=== PATIENT | male | born 1965 | race Caucasian/White ===

== ENCOUNTER 2017-03-08 05:50 | Emergency (ER) | payer OTHER ==
[2017-03-08] MEDS ORDERED: ONDANSETRON HCL INJ/PF 4 MG/2 ML SDV IV ONE (06:18)
--- NOTE | 2017-03-08 06:20 | ER Document Report ---
ED GI/ - General Mode of Arrival: Ambulatory Information source: Patient TRAVEL OUTSIDE OF THE [place] IN LAST 30 DAYS: No - HPI Patient complains to provider of: Other - see narrative Onset: Just prior to arrival - 0300 Timing/Duration: Sudden Quality of pain: Cramping Location: Other - periumbilical Associated symptoms: Vomiting <CHRISTIANO TREVIÑO - Last Filed: 03/08/17 06:13> <CHRISTOPHER RITTER - Last Filed: 03/08/17 11:34> - General Chief Complaint: Abdominal Pain Stated Complaint: ABDOMINAL PAIN Time Seen by Provider: 03/08/17 06:05 Notes: Patient is a 52-year-old male who presents to the emergency department today after waking up at 0300 with the sensation that his "stomach was tied in knots" . Patient states he had no relief with using a heating pad, taking Tums, or having a bowel movement prior to arrival. Patient states he has vomited twice but does not have nausea precipitating the vomiting. Patient denies a history of abdominal surgeries, blood in his vomit or bowel movement, fevers, chest pain , or history of new foods. (CHRISTIANO TREVIÑO) Past Medical History - General Information source: Patient - Social History Smoking Status: Never Smoker Cigarette use (# per day): No Frequency of alcohol use: None Drug Abuse: None Lives with: Family Family History: Reviewed & Not Pertinent Patient has suicidal ideation: No Patient has homicidal ideation: No - Medical History Medical History: Negative Surgical Hx: Negative <CHRISTIANO TREVIÑO - Last Filed: 03/08/17 06:13> Review of Systems - Review of Systems Constitutional: denies: Fever EENT: No symptoms reported Cardiovascular: denies: Chest pain Respiratory: No symptoms reported Gastrointestinal: See HPI, Abdominal pain, Vomiting. denies: Diarrhea, Nausea Genitourinary: No symptoms reported Male Genitourinary: No symptoms reported Musculoskeletal: No symptoms reported Skin: No symptoms reported Hematologic/Lymphatic: No symptoms reported Neurological/Psychological: No symptoms reported -: Yes All other systems reviewed and negative <CHRISTIANO TREVIÑO - Last Filed: 03/08/17 06:13> Physical Exam <CHRISTIANO TREVIÑO - Last Filed: 03/08/17 06:13> - Abdominal Distension: No: Distended Tenderness: No: Guarding, Rebound <CHRISTOPHER RITTER - Last Filed: 03/08/17 11:34> - Vital signs Vitals: Temp Pulse Resp BP Pulse Ox 98.5 F 81 18 182/94 H 99 03/08/17 05:55 03/08/17 05:55 03/08/17 05:55 03/08/17 05:55 03/08/17 05:55 - Notes Notes: PHYSICAL EXAM GENERAL: Alert, interacts well. No acute distress. HEAD: Normocephalic, atraumatic. EYES: Pupils equal, round, and reactive to light. Extraocular movements intact. ENT: Oral mucosa moist, tongue midline. NECK: Full range of motion. Supple. Trachea midline. LUNGS: Clear to auscultation bilaterally, no wheezes, rales, or rhonchi. No respiratory distress. HEART: Regular rate and rhythm. No murmurs, gallops, or rubs. ABDOMEN: Soft, mild abdominal periumbilical tenderness with palpation. Non- distended. Bowel sounds present in all 4 quadrants. EXTREMITIES: Moves all 4 extremities spontaneously. No edema, radial and dorsalis pedis pulses 2/4 bilaterally. No cyanosis. NEUROLOGICAL: Alert and oriented x3. Normal speech. PSYCH: Normal affect, normal mood. SKIN: Warm, dry, normal turgor. No rashes or lesions noted. (CHRISTIANO TREVIÑO) Course <CHRISTIANO TREVIÑO - Last Filed: 03/08/17 06:13> - Laboratory Result Diagrams: 03/08/17 06:27 03/08/17 06:27 <CHRISTOPHER RITTER - Last Filed: 03/08/17 11:34> - Re-evaluation Re-evalutation: 03/08/17 08:45 Patient has mild leukocytosis of 10.8,, no anemia, CMP does show hyperglycemia otherwise unremarkable, lipase normal, urinalysis shows glucose and a large amount of urine. Acute abdominal series does not show any signs of obstruction. Despite the patient's protest that he was no longer nauseated he did vomit shortly after he left the room. Patient was then given Zofran and feels much better is able to tolerate oral intake without difficulty. Patient was offered Toradol but his pain had resolved on its own so he refused. Patient has a history of kidney stones in the past, still has Flomax and pain medication at home, does not want a CT scan to confirm the presence of a stone. Patient will be discharged to home where he still has pain medication and Flomax. Patient will return for uncontrollable vomiting, fevers, uncontrollable pain or any new or concerning symptoms. (CHRISTOPHER RITTER) - Vital Signs Vital signs: Temp Pulse Resp BP Pulse Ox 98.6 F 102 H 18 162/96 H 95 03/08/17 09:13 03/08/17 09:13 03/08/17 09:13 03/08/17 09:13 03/08/17 09:13 - Laboratory Laboratory results interpreted by me: 03/08/17 03/08/17 03/08/17 06:27 06:27 06:53 WBC 10.8 H RDW 15.0 H Glucose 377 H Calcium 10.3 H Urine Protein 30 H Urine Glucose (UA) >=500 H Urine Blood LARGE H Urine Ascorbic Acid 20 H Discharge <CHRISTIANO TREVIÑO - Last Filed: 03/08/17 06:13> <CHRISTOPHER RITTER - Last Filed: 03/08/17 11:34> - Discharge Clinical Impression: Ureteral colic Hematuria Qualifiers: Hematuria type: unspecified type Qualified Code(s): R31.9 - Hematuria, unspecified Hypertension Qualifiers: Hypertension type: essential hypertension Qualified Code(s): I10 - Essential ( primary) hypertension Condition: Stable Disposition: HOME, SELF-CARE Additional Instructions: Kidney Stone You are passing or have passed a kidney stone. These stones are usually due to increased calcium or uric acid concentrations in your urine. Stones within the kidney itself are not painful. The pain occurs as the stone leaves the kidney to pass down the long tube, called the ureter, leading to the bladder. If the stone is small, it will usually pass by itself. Most patients can pass the stone at home. You will usually receive medications for pain, nausea or vomiting, and sometimes a medication to assist in passing the kidney stone. However, if the pain is very severe or if vomiting prevents you from taking oral pain medications, you may need to return for further treatment. Drink three or four quarts of fluids per day. You will be given pain medication (if needed) and urine strainers. Strain all your urine to see if the stone passes. If your doctor has asked you to bring the stone in for analysis, return with the stone once it has passed. Return if pain or vomiting become severe, if you develop a high fever, if you are unable to pass your urine, or if other unusual symptoms occur. Prescriptions: Ondansetron [Zofran Odt 4 mg Tablet] 1 - 2 tab PO Q4H PRN #15 tab.rapdis PRN Reason: For Nausea/Vomiting Forms: Elevated Blood Pressure Scribe Attestation: 03/08/17 11:34 I personally performed the services described in the documentation, reviewed and edited the documentation which was dictated to the scribe in my presence, and it accurately records my words and actions. (CHRISTOPHER RITTER) Scribe Documentation - Scribe Written by Melissa:: Melissa Caraballo, 03/08/2017 0621 acting as scribe for :: Dl <CHRISTIANO TREVIÑO - Last Filed: 03/08/17 06:13>
[2017-03-08 06:40] LABS: ABSOLUTE BASOPHILS # (AUTO) 0.1 10^3/uL (0.0-0.2); ABSOLUTE EOSINOPHILS # (AUTO) 0.2 10^3/uL (0.0-0.6); ABSOLUTE LYMPHOCYTES (AUTO) 2.4 10^3/uL (0.5-4.7); ABSOLUTE MONOCYTES (AUTO) 0.8 10^3/uL (0.1-1.4); ABSOLUTE NEUT (AUTO) 7.3 10^3/uL (1.7-8.2); BASOPHILS % (AUTO) 0.9 % (0-2); EOSINOPHILS % (AUTO) 1.8 % (0-6); HEMATOCRIT 39.7 % (37.9-51.0); HEMOGLOBIN 14.3 g/dL (13.5-17.0); HGB HCT DIFFERENCE 3.2; LYMPHOCYTES % (AUTO) 21.8 % (13-45); MEAN CORPUSCULAR HEMOGLOBIN 28.9 pg (27.0-33.4); MEAN CORPUSCULAR HGB CONC 35.9 g/dL (32.0-36.0); MEAN CORPUSCULAR VOLUME 81 fl (80-97); MONOCYTES % (AUTO) 7.9 % (3-13); RED BLOOD COUNT 4.94 10^6/uL (4.35-5.55); SEGMENTED NEUTROPHILS % (AUTO) 67.6 % (42-78); WHITE BLOOD COUNT 10.8 10^3/uL (4.0-10.5)
[2017-03-08 06:51] LABS: ALANINE AMINOTRANSFERASE 66 U/L (21-72); ALBUMIN 4.4 g/dL (3.5-5.0); ALKALINE PHOSPHATASE 81 U/L (38-126); ANION GAP 14 (5-19); ASPARTATE AMINO TRANSFERASE 33 U/L (17-59); BILIRUBIN,DIRECT 0.4 mg/dL (0.0-0.4); BILIRUBIN,TOTAL 0.8 mg/dL (0.2-1.3); BLOOD UREA NITROGEN 16 mg/dL (7-20); CALCIUM 10.3 mg/dL (8.4-10.2); CARBON DIOXIDE 25 mmol/L (22-30); CHLORIDE 103 mmol/L (98-107); CREATININE RESULT 0.96 mg/dL (0.52-1.25); GLUCOSE 377 mg/dL (75-110); POTASSIUM 4.5 mmol/L (3.6-5.0); SODIUM 142.4 mmol/L (137-145); TOTAL PROTEIN 7.1 g/dL (6.3-8.2)
[2017-03-08] MEDS ORDERED: KETOROLAC TROMETHAMINE INJ/PF 30 MG/1 ML SDV IV ONE (06:58)
--- NOTE | 2017-03-08 07:24 | RADIOLOGY REPORT (SQ) ---
EXAM DESCRIPTION: ACUTE ABDOMEN SERIES COMPLETED DATE/TIME: 03/08/2017 7:12 am REASON FOR STUDY: cramping abd pain, "tied in knots" COMPARISON: None. NUMBER OF VIEWS: Three views. TECHNIQUE: Frontal chest, supine abdomen and upright/decubitus abdomen radiographic images acquired. LIMITATIONS: None. FINDINGS: CHEST: Lungs clear of infiltrates. FREE AIR: None. No abnormal gas collections. BOWEL GAS PATTERN: Nonobstructive pattern. No dilated loops or air fluid levels. Paucity of bowel ga s. CALCIFICATIONS: No suspicious calcifications. HARDWARE: None in the abdomen. SOFT TISSUES: No gross mass or suggestion of organomegaly. BONES: Mild osteoarthritis of bilateral hips. OTHER: No other significant finding. IMPRESSION: NO RADIOGRAPHIC EVIDENCE FOR ACUTE ABDOMINAL DISEASE. TECHNICAL DOCUMENTATION: JOB ID: [id number] [employer]- All Rights Reserved
[2017-03-08 07:39] LABS: APPEARANCE,URINE CLEAR; BILIRUBIN,URINE NEGATIVE (NEGATIVE); GLUCOSE, URINE >=500 mg/dL (NEGATIVE); KETONES,URINE NEGATIVE (NEGATIVE); LEUKOCYTE ESTERASE,URINE NEGATIVE (NEGATIVE); NITRITE,URINE NEGATIVE (NEGATIVE); PROTEIN,URINE 30 mg/dL (NEGATIVE); URINE SPECIFIC GRAVITY 1.012; UROBILINOGEN,URINE NEGATIVE mg/dL (<2.0)
[2017-03-08 10:13] VITALS: BP 162/96
== END 2017-03-08 09:12 | disposition home or self-care (01) ==
LOC: ER 05:50
DX: N23 Unspecified renal colic (principal); R10.33 Periumbilical pain; R31.9 Hematuria, unspecified; R11.10 Vomiting, unspecified; I10 Essential (primary) hypertension
CPT/HCPCS: 99284; 96374; 36415; 83690; 85025; 80053; 81001; 74022; J2405

== ENCOUNTER 2018-05-19 06:18 | Emergency (ER) | payer OTHER ==
[2018-05-19] MEDS ORDERED: METOPROLOL TARTRATE PF/INJ 5 MG/5 ML SDV IV ONE (07:04)
[2018-05-19] MEDS ORDERED: KETOROLAC TROMETHAMINE INJ/PF 30 MG/1 ML SDV IV ONE (07:20)
--- NOTE | 2018-05-19 07:24 | ER Document Report ---
ED General - General Mode of Arrival: Ambulatory Information source: Patient TRAVEL OUTSIDE OF THE [place] IN LAST 30 DAYS: No <ZENAIDA SINGH - Last Filed: 05/19/18 07:24> <CHRISTIE HOLMAN - Last Filed: 05/19/18 10:39> - General Chief Complaint: Abdominal Pain Stated Complaint: ABDOMINAL PAIN Time Seen by Provider: 05/19/18 07:00 Notes: Patient is a 53 year old male presenting to the emergency department complaining of abdominal pain onset around 0300 this morning. Patient states he noticed the pain when he woke up this morning and states the pain is located around his umbilicus. Patient states he had somewhat similar pain approximately 1 year ago and was diagnosed with a kidney stone. Patient denies any diarrhea or constipation. (ZENAIDA SINGH) - Related Data Allergies/Adverse Reactions: No Known Drug Allergies Allergy (Verified 05/19/18 08:39) Past Medical History - General Information source: Patient - Social History Smoking Status: Never Smoker Frequency of alcohol use: Occasional Family History: Reviewed & Not Pertinent Patient has suicidal ideation: No Patient has homicidal ideation: No Past Surgical History: Reports: Hx Tonsillectomy <ZENAIDA SINGH - Last Filed: 05/19/18 07:24> Review of Systems - Review of Systems Constitutional: No symptoms reported EENT: No symptoms reported Cardiovascular: No symptoms reported Respiratory: No symptoms reported Gastrointestinal: See HPI, Abdominal pain Genitourinary: No symptoms reported Male Genitourinary: No symptoms reported Musculoskeletal: No symptoms reported Skin: No symptoms reported Hematologic/Lymphatic: No symptoms reported Neurological/Psychological: No symptoms reported -: Yes All other systems reviewed and negative <ZENAIDA SINGH - Last Filed: 05/19/18 07:24> Physical Exam <ZENAIDA SINGH - Last Filed: 05/19/18 07:24> <CHRISTIE HOLMAN - Last Filed: 05/19/18 10:39> - Vital signs Vitals: Temp Pulse Resp BP Pulse Ox 97.5 F 88 18 186/89 H 97 05/19/18 06:24 05/19/18 06:24 05/19/18 06:24 05/19/18 06:24 05/19/18 06:24 - Notes Notes: GENERAL: Alert, interacts well. No acute distress. HEAD: Normocephalic, atraumatic. EYES: Pupils equal, round, and reactive to light. Extraocular movements intact. ENT: Oral mucosa moist, tongue midline. NECK: Full range of motion. Supple. Trachea midline. LUNGS: Clear to auscultation bilaterally, no wheezes, rales, or rhonchi. No respiratory distress. HEART: Regular rate and rhythm. No murmurs, gallops, or rubs. ABDOMEN: Soft, obese. Tender to palpation around the umbilicus, more tender in the RLQ and LLQ, no guarding, rigidity or rebounding. Non-distended. Bowel sounds present in all 4 quadrants, resonant to percussion. EXTREMITIES: Moves all 4 extremities spontaneously. NEUROLOGICAL: Alert and oriented x3. Normal speech. PSYCH: Normal affect, normal mood. SKIN: Warm, dry, normal turgor. No rashes or lesions noted. (ZENAIDA SINGH) Course - Laboratory Result Diagrams: 05/19/18 06:50 05/19/18 06:50 <ZENAIDA SINGH - Last Filed: 05/19/18 07:24> - Laboratory Result Diagrams: 05/19/18 06:50 05/19/18 06:50 - Diagnostic Test Radiology reviewed: Reports reviewed - KUB is unremarkable. Noncontrasted CT scan of the abdomen pelvis shows a right proximal ureteral stone measuring 5.7 x 5.4 mm causing hydroureter and hydronephrosis with some perinephric stranding. <CHRISTIE HOLMAN - Last Filed: 05/19/18 10:39> - Re-evaluation Re-evalutation: 05/19/18 08:11 The patient's blood sugar is 464. When he was seen here just over a year ago it was 377. I asked him if he had ever been told he had diabetes, and he stated when he was seen for kidney stone perhaps 2 years ago he was told that his sugar was "a little high, but nothing to worry about". (CHRISTIE HOLMAN) - Vital Signs Vital signs: Temp Pulse Resp BP Pulse Ox 98.2 F 87 18 179/90 H 97 05/19/18 07:50 05/19/18 07:50 05/19/18 07:50 05/19/18 07:50 05/19/18 07:50 - Laboratory Laboratory results interpreted by me: 05/19/18 05/19/18 05/19/18 06:50 06:50 07:50 WBC 13.9 H Seg Neutrophils % 81.7 H Lymphocytes % 10.7 L Absolute Neutrophils 11.3 H Glucose 464 H* Urine Glucose (UA) >=500 H Urine Ketones TRACE H Urine Blood LARGE H Urine Ascorbic Acid 40 H Discharge <ZENAIDA SINGH - Last Filed: 05/19/18 07:24> <CHRISTIE HOLMAN - Last Filed: 05/19/18 10:39> - Discharge Clinical Impression: Calculus of proximal right ureter, Hydronephrosis of right kidney, High blood pressure associated with diabetes Diabetes Qualifiers: Diabetes mellitus type: type 2 Diabetes mellitus remote computer terminal operator insulin use: without remote computer terminal operator use Diabetes mellitus complication status: without complication Qualified Code(s): E11.9 - Type 2 diabetes mellitus without complications Condition: Stable Disposition: HOME, SELF-CARE Additional Instructions: Kidney Stone: You are passing or have passed a kidney stone. These stones are usually due to increased calcium or uric acid concentrations in your urine. Stones within the kidney itself are not painful. The pain occurs as the stone leaves the kidney to pass down the long tube, called the ureter, leading to the bladder. If the stone is small, it will usually pass by itself. Most patients can pass the stone at home. You will usually receive medications for pain, nausea or vomiting, and sometimes a medication to assist in passing the kidney stone. However, if the pain is very severe or if vomiting prevents you from taking oral pain medications, you may need to return for further treatment. Drink three or four quarts of fluids per day. You will be given pain medication (if needed) and urine strainers. Strain all your urine to see if the stone passes. If your doctor has asked you to bring the stone in for analysis, return with the stone once it has passed. Return if pain or vomiting become severe, if you develop a high fever, if you are unable to pass your urine, or if other unusual symptoms occur. Diabetes: You have an abnormally high blood sugar, suspicious for diabetes. Not all high blood sugar requires long-term treatment. High blood sugar can be due to medications, , or the stress of illness. (These cases are "borderline diabetes.") If the doctor feels your high blood sugar might get better with time, you may not require treatment now. You will be scheduled for further evaluation. It's very important that you follow through. Uncontrolled high blood sugar leads to early heart disease , strokes, nerve damage, eye damage, and kidney damage. All diabetics should follow a diet designed to control the blood sugar. Overweight diabetics should exercise regularly and lose weight. If this is not sufficient to control the blood sugar, pills or insulin shots are necessary. Younger people who develop diabetes almost always require insulin daily. Home testing of blood sugars or urine sugar is required. Diabetic teaching is available to help you figure insulin doses and monitor the blood sugar. Call the physician if there is faintness, excess sleepiness, or very rapid breathing. If hypoglycemia (LOW blood sugar) develops, symptoms are shakiness, weakness, sweating, and confusion. In this case, you should eat or drink something with sugar at once. High Blood Pressure, Requiring Treatment: Your blood pressure is high. This is called "hypertension." Your history and exam suggest that this is not a temporary problem. You need treatment of your blood pressure. If left untreated, high blood pressure greatly increases your risk of heart attack and stroke. Please don't ignore this problem. If you have blood pressure medicine but aren't using it regularly, start taking it again. Some simple things you can do to help are: Get some aerobic exercise for at least 20 minutes on a daily basis. (See your doctor before beginning any new exercise program.) Eat a low-fat diet. Lose excess weight. Avoid salty foods and avoid adding salt to any of the foods you eat. Avoid diet pills, decongestants, "energizing" herbs, and other medicines that elevate blood pressure. There are many different medicines that treat blood pressure. If your medication causes unpleasant side effects, call your doctor. There are others you can try. Treating hypertension is a life-long investment in your health. Your blood pressure was quite high today, when you were here last year it was also high. You will be placed on a blood pressure medication called Lisinopril which is recommended in diabetics. You will be placed on Metformin to help control your blood sugars. You will be given prescriptions for Flomax and Percocet to help with the kidney stone. Follow-up with [facility] urology to treat your kidney stone. Follow-up with Dr. Petersen at [facility]. RETURN TO THE EMERGENCY ROOM IF ANY NEW OR WORSENING SYMPTOMS. Prescriptions: Lisinopril [Prinivil] 20 mg PO DAILY #30 tablet Metformin HCl 1,000 mg PO BID #60 tablet Oxycodone HCl/Acetaminophen [Percocet 5-325 mg Tablet] 1 - 2 tab PO ASDIR PRN # 15 tablet PRN Reason: Tamsulosin HCl [Flomax 0.4 mg Cap.sr] 0.4 mg PO DAILY #20 cap.sr.24h Referrals: [facility] [Outside] - [facility] in 1 [facility] - Follow up in 3-5 days Scribe Attestation: 05/19/18 08:57 I personally performed the services described in the documentation, reviewed and edited the documentation which was dictated to the scribe in my presence, and it accurately records my words and actions. (CHRISTIE HOLMAN) Scribe Documentation - Scribe Written by Scrnayanae:: Melissa Lugo, 05/19/2018 07:26 acting as scribe for :: Yong <ZENAIDA SINGH - Last Filed: 05/19/18 07:24>
[2018-05-19 07:39] LABS: ABSOLUTE BASOPHILS # (AUTO) 0.1 10^3/uL (0.0-0.2); ABSOLUTE EOSINOPHILS # (AUTO) 0.1 10^3/uL (0.0-0.6); ABSOLUTE LYMPHOCYTES (AUTO) 1.5 10^3/uL (0.5-4.7); ABSOLUTE MONOCYTES (AUTO) 0.9 10^3/uL (0.1-1.4); ABSOLUTE NEUT (AUTO) 11.3 10^3/uL (1.7-8.2); BASOPHILS % (AUTO) 0.6 % (0-2); EOSINOPHILS % (AUTO) 0.5 % (0-6); HEMATOCRIT 42.2 % (37.9-51.0); LYMPHOCYTES % (AUTO) 10.7 % (13-45); MEAN CORPUSCULAR HEMOGLOBIN 28.5 pg (27.0-33.4); MEAN CORPUSCULAR HGB CONC 35.4 g/dL (32.0-36.0); MEAN CORPUSCULAR VOLUME 80 fl (80-97); MONOCYTES % (AUTO) 6.5 % (3-13); PLATELET COUNT 259 10^3/uL (150-450); RED BLOOD COUNT 5.25 10^6/uL (4.35-5.55); SEGMENTED NEUTROPHILS % (AUTO) 81.7 % (42-78); TOTAL CELLS COUNTED % (AUTO) 100 %; WHITE BLOOD COUNT 13.9 10^3/uL (4.0-10.5)
[2018-05-19 07:45] LABS: ALANINE AMINOTRANSFERASE 34 U/L (21-72); ALBUMIN 4.4 g/dL (3.5-5.0); ALKALINE PHOSPHATASE 99 U/L (38-126); ANION GAP 16 (5-19); ASPARTATE AMINO TRANSFERASE 24 U/L (17-59); BILIRUBIN,DIRECT 0.3 mg/dL (0.0-0.4); BILIRUBIN,TOTAL 0.9 mg/dL (0.2-1.3); BLOOD UREA NITROGEN 18 mg/dL (7-20); CALCIUM 9.6 mg/dL (8.4-10.2); CARBON DIOXIDE 26 mmol/L (22-30); CHLORIDE 100 mmol/L (98-107); POTASSIUM 4.6 mmol/L (3.6-5.0); SODIUM 142.2 mmol/L (137-145)
--- NOTE | 2018-05-19 07:52 | RADIOLOGY REPORT (SQ) ---
EXAM DESCRIPTION: XR ABDOMEN 1 VIEW (KUB) COMPLETED DATE/TME: 05/19/2018 07:21 CLINICAL HISTORY: 53 years Male, Mid and lower abdominal pain COMPARISON:03/08/2017 NUMBER OF VIEWS/TECHNIQUE: 1 FINDINGS: Intestinal gas pattern is within normal limits. No suspicious calcification. Grossly intact skeletal structures. IMPRESSION: No acute findings.
[2018-05-19 07:54] LABS: GLUCOSE 464 mg/dL (75-110)
[2018-05-19 08:58] LABS: APPEARANCE,URINE SLIGHTLY-CLOUDY; BILIRUBIN,URINE NEGATIVE (NEGATIVE); COLOR,URINE YELLOW; GLUCOSE, URINE >=500 mg/dL (NEGATIVE); KETONES,URINE TRACE mg/dL (NEGATIVE); LEUKOCYTE ESTERASE,URINE NEGATIVE (NEGATIVE); NITRITE,URINE NEGATIVE (NEGATIVE); PROTEIN,URINE NEGATIVE (NEGATIVE); URIC ACID CRYSTALS,URINE FEW /HPF; URINE SPECIFIC GRAVITY 1.022; UROBILINOGEN,URINE NEGATIVE mg/dL (<2.0)
--- NOTE | 2018-05-19 09:57 | RADIOLOGY REPORT (SQ) ---
EXAM DESCRIPTION: CT LTD RENAL STONE PROTOCOL ON COMPLETED DATE/TIME: 05/19/2018 9:41 am REASON FOR STUDY: Bilateral pelvic pain with hematuria COMPARISON: None. TECHNIQUE: CT scan of the abdomen and pelvis performed without intravenous or oral contrast. Images reviewed with lung, soft tissue, and bone windows. Reconstructed coronal and sagittal MPR images revi ewed. All images stored on PACS. All CT scanners at this facility use dose modulation, iterative reconstruction, and/or weight based d osing when appropriate to reduce radiation dose to as low as reasonably achievable (ALARA). [facility]: Dose Right [facility]: CareDose [facility]: Dose Right [facility]: Teradose 4D [facility]: Smart OpenLabel RADIATION DOSE: CT Rad equipment meets quality standard of care and radiation dose reduction techniq ues were employed. CTDIvol: 9.5 mGy. DLP: 571 mGy-cm.mGy. LIMITATIONS: None. FINDINGS: LOWER CHEST: No significant findings. No nodules or infiltrates. NON-CONTRASTED LIVER, SPLEEN, ADRENALS: Evaluation limited by lack of IV contrast. No identified sign ificant masses. PANCREAS: No masses. No peripancreatic inflammatory changes. GALLBLADDER: No identified stones by CT criteria. No inflammatory changes to suggest cholecystitis. RIGHT KIDNEY AND URETER: No suspicious masses. Assessment limited by lack of IV contrast. No right renal calculi are identified. An obstructing 5.7 x 5.4 mm in diameter calculus is identified in the proximal right ureter best seen on image number 58. There is hydronephrosis of right kidney and dil atation of the right ureter proximal to the obstructing calculus. Perinephric soft tissue stranding is identified. LEFT KIDNEY AND URETER: No suspicious masses. Assessment limited by lack of IV contrast. No signifi cant calcifications. No hydronephrosis or hydroureter. AORTA AND RETROPERITONEUM: No aneurysm. No retroperitoneal masses or adenopathy. BOWEL AND PERITONEAL CAVITY: No obvious masses or inflammatory changes. No free fluid. Multiple dive rticulae a are identified in the descending colon and sigmoid colon without CT evidence for diverticu litis APPENDIX: Normal. PELVIS, BLADDER, AND ABDOMINAL WALL:No abnormal masses. No free fluid. Bladder normal. BONES: No significant findings. OTHER: No other significant finding. IMPRESSION: Obstructing 5.7 x 5.4 mm in diameter calculus in the proximal right ureter. No renal ca lculi are identified. Other findings as noted above. COMMENT: Quality ID # [id number]: Final reports with documentation of one or more dose reduction techniques (e.g., Automated exposure control, adjustment of the mA and/or kV according to patient size, use of iterative reconstruction technique) TECHNICAL DOCUMENTATION: JOB ID: [id number] [employer]- All Rights Reserved Reading location - IP/workstation name: [email or web address]
[2018-05-19 10:53] VITALS: BP 149/93
== END 2018-05-19 10:53 | disposition home or self-care (01) ==
LOC: ER 06:18
DX: N13.2 Hydronephrosis with renal and ureteral calculous obstruction (principal); R10.9 Unspecified abdominal pain; R31.9 Hematuria, unspecified; I10 Essential (primary) hypertension; E11.9 Type 2 diabetes mellitus without complications; Z79.84 Long term (current) use of oral hypoglycemic drugs; Z79.899 Other long term (current) drug therapy
CPT/HCPCS: 99284; 96374; 36415; 85025; 80053; 81001; 74018; 76380; J1885